=== PATIENT | female | born 1995 | race Caucasian/White ===

== ENCOUNTER 2018-06-25 19:02 | Outpatient (REF) | payer MEDICAID, SELFPAY ==
[2018-06-25 19:44] LABS: Clarity Cloudy
[2018-06-25 19:45] LABS: Specific Gravity 1.025 (1.005-1.025)
[2018-06-25 19:48] LABS: Epithelial Cells Many HPF (Negative); RBC >50 (0-2); WBC >50 HPF (0-5)
[2018-06-25 19:49] LABS: C & S Indicated? C&S Done As Ordered; Casts Negative LPF (Negative); Crystals Many Amorphous HPF (Negative); Mucus Negative (Negative)
== END 2018-06-25 19:22 ==
LOC: LBN 19:02
PROVIDERS: PCP Nurse Practitioner Family; Visit Provider Nurse Practitioner Family
DX: R31.9 Hematuria, unspecified (principal)
CPT/HCPCS: 87077; 81003; 81015; 87086; 87186

== ENCOUNTER 2018-07-11 13:48 | Outpatient (REF) | payer MEDICAID, SELFPAY | END 2018-07-11 14:08 | LOC: LBN 13:48 | PROVIDERS: PCP Nurse Practitioner Family; Visit Provider Nurse Practitioner Family | DX: N39.0 Urinary tract infection, site not specified (principal) | CPT/HCPCS: 87086 ==

== ENCOUNTER 2018-09-12 16:16 | Outpatient (REF) | payer MEDICAID, SELFPAY | END 2018-09-12 16:36 | LOC: LBN 16:16 | PROVIDERS: PCP Nurse Practitioner Family; Visit Provider Family Medicine | DX: J02.9 Acute pharyngitis, unspecified (principal) | CPT/HCPCS: 87070 ==

== ENCOUNTER 2018-12-15 10:09 | Emergency (ER) | payer MEDICAID, SELFPAY ==
[2018-12-15 10:13] VITALS: BP 127/76; PULSE 86; RESP 18; TEMP 36.7; O2SAT 97
--- NOTE | 2018-12-16 08:47 | ED.GENADUL_ITS ---
Discharge Plan Disposition Patient Disposition: HOME Condition: Good Discharge Details Chief Complaint: EyeProblem Clinical Impression: Conjunctivitis Primary Care Provider: Tanya Dangelo ED Provider: Lorna Mckeon Home Meds and New Rx's Prescriptions: New ofloxacin [Ocuflox] 0.3 % drops 1 drp OP QID Qty: 5 RF: 1 No Action Oral Contraceptive See Rx Instructions .ROUTE .COMPLEX RF: 0 Discharge Instructions Instructions: Conjunctivitis (ED) Additional Instructions: Wash hands frequently Warm compresses to the eye when drainage is present, cool compresses for comfort. Use antibiotic drops as prescribed 1 drop in each eye every 2 hours while awake for the first 2 days then decrease use to 4 times daily while awake. Use antibiotic drops for 1 week. Avoid use of contacts for 1 week. Follow-up with [facility] if not improving in next 2-3 days. Return for any worsening or concerns sooner if needed. Discharge Data Discharge Date/Time-TO BE ENTERED AT DEPARTURE: 12/15/18 10:51 Medical Decision Making 23-year-old patient presents for concern of left eye pinkeye. Patient reports drainage and crusting of the eye this morning I was crusted closed. Patient with associated upper respiratory symptoms. Is concerned for pinkeye and requiring antibiotic. Patient does have children at home. No other ill exposures. Patient denies any vision change or alarming symptoms of the eye. No injury or trauma. Does use contacts but has not been sleeping in them recently and denies pain or discomfort associated with discharge from the eye. I feel corneal ulcer is unlikely at this time given her presentation. Patient denies any vision changes. Patient would prefer antibiotic treatment at this time and follow-up with [facility] who follows her for any worsening or concerns if not improved. Insert discharge statement HPI General Date/Time Provider Initiated Documentation: 12/15/18 10:22 . HPI Narrative: 23-year-old patient presents for complaints of left eye irritation. Patient reports she has had mild cough and cold symptoms this week and then began with onset of left eye redness and associated crusting this morning. Patient reports she woke this morning and her eye was crusted closed. Patient denies significant eye pain. She did report mild discomfort to the lower lid on the left and does have a history of stye, none apparent at this time. Patient denies vision change, blurred vision, double vision, spots, flashes or floaters. Denies ill feeling. No concern of sinus infection. Reports mild nasal discharge but no facial pain. No significant ear pain. No significant sore throat or voice change. Patient reports mild cough. Patient denies any injury or trauma to her eye. She does wear contact lenses. Has not slept in her contacts recently. Related Data Home Medications Medication Instructions Recorded Confirmed Oral Contraceptive See Rx Instructions .ROUTE .COMPLEX 07/11/18 12/15/18 ofloxacin [Ocuflox] 1 drp OP QID #5 ml 12/15/18 Previous Rx's Medication Instructions Recorded ofloxacin [Ocuflox] 1 drp OP QID #5 ml 12/15/18 Allergies Allergy/AdvReac Type Severity Reaction Status Date / Time latex Allergy Severe RASH Verified 12/15/18 10:15 NUTS Allergy Unknown Swollen, Uncoded 12/15/18 10:15 itchy gums General Stated Complaint: EyeProblem SHIRA: 5 Review of Systems All systems reviewed & are unremarkable except as noted in HPI and below Constitutional Constitutional: Denies chills, Denies fever(s) and Denies headache(s) Eyes Eyes: Denies blind spots, Denies blurry vision, Reports eye discharge, Denies loss of peripheral vision, Denies loss of vision, Denies eye pain, Denies seeing flashes and Denies photophobia ENT Ears, Nose, Mouth, and Throat: Denies otalgia, Denies headache(s), Reports nasal congestion, Reports nasal discharge, Denies sinus pain, Denies sinus pressure and Denies sore throat Cardiovascular Cardiovascular: Denies dyspnea on exertion Respiratory Respiratory: Reports cough and Denies dyspnea on exertion Neurologic Neurologic: Denies headache(s) and Denies loss of vision [facility] Medical History Acute bacterial tonsillitis (Resolved) Nut allergy (Acute) Reported by patient - several episodes ages 10-14 with tongue swelling. None since. Never tested. Declines referral and/or offer of epi pen Tonsillitis (Acute) Wart (Acute) Family History Mother Personal history of malignant neoplasm ovarian/uterine Father No problems noted. Sister No problems noted. Grandfather Hypertensive disorder, systemic arterial Diabetes Heart disease Grandfather Diabetes Grandmother Hypertensive disorder, systemic arterial Diabetes Personal history of malignant neoplasm Heart disease Grandmother Hypertensive disorder, systemic arterial Diabetes Heart disease FAMILY HISTORY No problems noted. Social History Smoking/Tobacco Use Status: Never Alcohol Intake: never Substance use type: does not use Do you feel safe at home: Yes Do you feel safe in your relationship?: Yes Exam Narrative Exam Narrative: CONST: Healthy appearing patient, in no acute distress. Well hydrated. Alert and alert. HENMT: Head nomocephalic, normal to inspection. Atraumatic. Hearing grossly normal. Mild right TM erythema without obvious bulging. Left TM normal in appearance. Mild pharyngeal erythema. EYES: General normal appearance. Alignment normal. Eyelids normal. Left conjunctival injection. Mild drainage noted on the lid. No obvious stye associated. Extraocular motion intact without pain. PERRLA. NECK: Normal visual inspection. FROM. Trachea midline. No Midline tenderness. Cervical lymphadenopathy present. CHEST: Normal insepection of the chest. RESP: Normal respiratory effort. Speaking full sentences. No cough. No audible wheezing. No retractions. Breath sounds are equal and full bilaterally without associated rales, rhonchi or wheezing SKIN: Normal. Dry. No rashes. NEURO: Alert and awake. Speech clear. PSYCH: Normal affect. Cooperative. Course Vital Signs Vital signs: Vital Signs Temperature 36.7 C 12/15/18 10:13 Pulse 86 12/15/18 10:13 Respiratory Rate 18 12/15/18 10:13 Blood Pressure 127/76 12/15/18 10:13 Pulse Oximetry 97 12/15/18 10:13 Temperature 36.7 C 12/15/18 10:13 Temperature Source Temporal Artery Scan 12/15/18 10:13 Pulse 86 12/15/18 10:13 Respiratory Rate 18 12/15/18 10:13 Respiratory Effort Non-Labored 12/15/18 10:13 Blood Pressure 127/76 12/15/18 10:13 Pulse Oximetry 97 12/15/18 10:13 Oxygen Delivery Method Room Air 12/15/18 10:13 Oxygen Flow Rate 0 12/15/18 10:13 Pain Level 0 12/15/18 10:13
== END 2018-12-15 10:51 | disposition home or self-care (01) ==
PROVIDERS: Emergency Provider Physician Assistant; PCP Nurse Practitioner Family
DX: H10.89 Other conjunctivitis (principal)
CPT/HCPCS: 99283

== ENCOUNTER 2019-04-22 15:15 | Emergency (ER) | payer MEDICAID, SELFPAY ==
[2019-04-22 15:22] VITALS: BP 127/75; PULSE 66; RESP 16; TEMP 36.3; O2SAT 99
--- NOTE | 2019-04-22 15:31 | ED.GENADUL_ITS ---
Discharge Plan Disposition Patient Disposition: HOME Condition: Stable Discharge Details Chief Complaint: RespSymp Clinical Impression: Sinusitis Primary Care Provider: Tanya Dangelo ED Provider: Aamir Teresa Home Meds and New Rx's Prescriptions: New amoxicillin-pot clavulanate [Augmentin] 875-125 mg tablet 1 tab PO BID Qty: 14 RF: 0 Continued Oral Contraceptive See Rx Instructions .ROUTE .COMPLEX RF: 0 Discharge Instructions Instructions: Sinusitis (ED) Additional Instructions: try taking a claritin in the morning, and before bed benadryl. Also try a netti pot if not better within a week see your primary care provider if you feel more ill or have worsening fevers or difficulty breathing return to the emergency department Medical Decision Making 23 yo female who denies chronic medical problems comes in with 14 days of sinus pain and congestion, cough and ear pain. HAd a temp to 100.0 several days ago otherwise no fevers, denies any recent travel, and denies drug use. She is in no distress on exam speaking in full sentences and appears well systemically. HAs clear rhinorrhea, clear lung sounds, normal tm's and pain on percussino of maxillary sinuses. Suspect sinusitis and given over 10 days of symptoms will start her on augmentin. ADvised to f/u with pcp in a week if not better and return precautions given. HAs no skin changes, vision changes, eomi so doubt entities such as orbital cellulitis or cavernous sinus thrombosis Differential Diagnosis Differential Diagnosis: sinusitis, uri, bronchitis HPI General Mode of arrival: ambulatory . Date/Time Provider Initiated Documentation: 04/22/19 15:18 . Limitations to Documentation: no limitations . Information obtained by: patient . History of Present Illness 23 year old F presents to the emergency department with the chief complaint of sinus pain and congestion, described as moderate, and is localized to the face. No relieving factors improve symptom(s), No exacerbating factors reported . Patient notes cough. Patient did receive the following treatments prior to arrival, NSAID Related Data Home Medications Medication Instructions Recorded Confirmed Oral Contraceptive See Rx Instructions .ROUTE .COMPLEX 07/11/18 04/22/19 amoxicillin-pot clavulanate 1 tab PO BID #14 tab 04/22/19 [Augmentin] Previous Rx's Medication Instructions Recorded amoxicillin-pot clavulanate 1 tab PO BID #14 tab 03/02/20 [Augmentin] Allergies Allergy/AdvReac Type Severity Reaction Status Date / Time latex Allergy Severe RASH Verified 04/22/19 15:24 NUTS Allergy Unknown Swollen, Uncoded 04/22/19 15:24 itchy gums General Stated Complaint: RespSymp SHIRA: 4 Review of Systems All systems reviewed & are unremarkable except as noted in HPI and below Constitutional Constitutional: Denies chills and Denies weakness Cardiovascular Cardiovascular: Denies chest pain and Denies dyspnea Respiratory Respiratory: Denies dyspnea Gastrointestinal Gastrointestinal: Denies abdominal pain, Denies nausea and Denies vomiting Genitourinary Genitourinary: Denies dysuria Musculoskeletal Musculoskeletal: Denies joint swelling Integumentary/Breasts Skin/Breast: Denies rash Neurologic Neurologic: Denies weakness PFSH Family History Mother Personal history of malignant neoplasm ovarian/uterine Father No problems noted. Sister No problems noted. Grandfather Hypertensive disorder, systemic arterial Diabetes Heart disease Grandfather Diabetes Grandmother Hypertensive disorder, systemic arterial Diabetes Personal history of malignant neoplasm Heart disease Grandmother Hypertensive disorder, systemic arterial Diabetes Heart disease FAMILY HISTORY No problems noted. Social History Smoking/Tobacco Use Status: Never Alcohol Intake: never Substance use type: does not use Do you feel safe at home: Yes Do you feel safe in your relationship?: Yes Exam Const General: no acute distress Orientation: alert HENMT Head: normal to inspection Ears: external ears normal General nose exam: external nose normal Mouth: moist mucous membranes Eyes General: appearance normal, both eyes and all related structures Neck Neck: normal visual inspection Resp Effort & Inspection: normal respiratory effort and able to speak in complete sentences Cardio Rate: regular rate Skin General skin exam: no rashes or lesions noted Neuro General: alert and oriented x3 Extrem General: normal to inspection Psych Mental Status: mental status grossly normal Course Vital Signs Vital signs: Vital Signs Temperature 36.3 C L 04/22/19 15:22 Pulse 66 04/22/19 15:22 Respiratory Rate 16 04/22/19 15:22 Blood Pressure 127/75 04/22/19 15:22 Pulse Oximetry 99 04/22/19 15:22 Temperature 36.3 C L 04/22/19 15:22 Temperature Source Skin 04/22/19 15:22 Pulse 66 04/22/19 15:22 Respiratory Rate 16 04/22/19 15:22 Respiratory Effort Non-Labored 04/22/19 15:25 Blood Pressure 127/75 04/22/19 15:22 Blood Pressure Position Sitting 04/22/19 15:22 Pulse Oximetry 99 04/22/19 15:22 Oxygen Delivery Method Room Air 04/22/19 15:22 Oxygen Flow Rate 0 04/22/19 15:22 Pain Level 2 04/22/19 15:22
== END 2019-04-22 15:57 | disposition home or self-care (01) ==
PROVIDERS: Emergency Provider Emergency Medicine; PCP Nurse Practitioner Family
DX: J01.90 Acute sinusitis, unspecified (principal)
CPT/HCPCS: 99283

== ENCOUNTER 2019-08-10 06:49 | Emergency (ER) | payer MEDICAID, SELFPAY ==
[2019-08-10 06:54] VITALS: BP 127/94; PULSE 87; RESP 18; TEMP 36.8; O2SAT 96
--- NOTE | 2019-08-10 07:00 | DI.CT_ITS ---
EXAM: CT ABDOMEN PELVIS W CLINICAL HISTORY: RLQ pain, r/o appem, also eval GB TECHNIQUE: Imaging Protocol: Axial computed tomography images with coronal and sagittal reformatted images were created and reviewed CONTRAST MATERIAL: Intravenous: Omnipaque 350 Contrast volume:100 mL Oral: No COMPARISON: No exams were available for comparison FINDINGS: The lung bases are clear. The liver is unremarkable. The portal, superior mesenteric and splenic ve ins are unremarkable. The gallbladder is unremarkable. There is no biliary ductal dilatation. The pancreas, spleen and adrenal glands are unremarkable. The abdominal aorta is of normal caliber. No aneurysmal dilatation is present. No significant abdominal or pelvic adenopathy, ascites or pneumope ritoneum is present. The urinary bladder is intact. The reproductive organs are unremarkable. Ther e is moderate to marked thickening of the wall of the right colon and cecum. The remainder of the massiel wel is unremarkable. The appendix has a normal appearance. The bones are unremarkable. IMPRESSION: 1. Bowel wall thickening in the right colon and cecum suspicious for an inflammatory or infectious co litis. 2. Normal appendix. RADIATION DOSE DELIVERED: Total DLP DATA REPOSITORY: All CT scans at this facility are submitted to the National Radiology Data Registry (NRDR) Dose Index Registry (DIR) with the [employer] (ACR). RADIATION OPTIMIZATION: All CT scans at this facility use at least one of these dose optimization te chniques: automated exposure control; mA and/or kV adjustment per patient size (includes targeted exa ms where dose is matched to clinical indication); or iterative reconstruction.
--- NOTE | 2019-08-10 07:08 | ED.GENADUL_ITS ---
Discharge Plan Disposition Patient Disposition: HOME Condition: Stable Discharge Details Chief Complaint: Abd Prob Clinical Impression: Colitis Primary Care Provider: Tanya Dangelo ED Provider: Caden Pederson Home Meds and New Rx's Prescriptions: Continued Oral Contraceptive See Rx Instructions .ROUTE .COMPLEX RF: 0 Discharge Instructions Instructions: Colitis (ED) Additional Instructions: Please allow for bowel rest over the next few days. I recommend you maintain a clear liquid diet today. Tomorrow you may advance to bland soft foods like rice and maintain adequate clear liquid intake. Advance diet slowly thereafter. Please contact your primary care physician to arrange follow-up. Return to the ER for any worsening or new concerning symptoms. Referrals: Tanya Dangelo, ELIDA [Primary Care Provider] - Medical Decision Making <Nilo Allison DO - Last Filed: 08/10/19 07:11> 23-year-old female presents today for evaluation of right-sided abdominal pain. Patient states that for the last 2 days she has had nausea, and continuous right-sided abdominal pain located more so in the upper right abdominal quadrant and initially started midline and is now radiating towards her back. She denies any aggravation or relief with food. She has had no relief or improvement of her symptoms with Maalox or Pepto-Bismol. She describes her pain is constant and achy in nature. It does not come and go. She denies any vomiting or diarrhea. She denies any numbness tingling or weakness. She denies any vaginal discharge, urinary frequency or dysuria. She is taking contraceptives. Physical exam demonstrates notable right lower quadrant tenderness, palpation does give a radiation of the pain to the umbilical region as well. She has no pain in the right upper quadrant whatsoever on palpation. Historically I was more concerned with gallbladder pathology however physical exam certainly brings about concern for lingering appendicitis. Because of this we will get a CT scan of the abdomen and pelvis with contrast, and treat patient's pain with Toradol, monitor closely and reassess. <Caden Pederson MD - Last Filed: 08/10/19 08:49> 800??care signed out by Dr. Allison. Please see his documentation regarding initial ED presentation and course. Plan at signout was to follow-up on CT of the abdomen and pelvis. 834??CT the abdomen pelvis was interpreted by radiology: IMPRESSION: 1. Moderate to large wall thickening in the right colon. Consistent with infectious versus inflammatory colitis. 2. Normal appendix Patient reassessed and is remained stable. Able to tolerate fluids. All results were reviewed and discussed with the patient. Patient not able to provide stool specimen. Loose stool 2 days ago. Has had formed BM yesterday. Advised follow-up PCP for stool cultures. Plan will be for bowel rest, outpatient follow-up with PCP, and strict instructions to return should have any worsening or new concerning symptoms. Usual customary discharge instructions were reviewed with the patient. Lab Data Lab results reviewed: Yes I reviewed the patient's lab results. Labs: Laboratory Tests Range/Units 08/10/19 08/10/19 08/10/19 07:10 07:10 07:15 WBC (4.4-10.8) k/cumm 10.72 RBC (4.00-5.20) m/cumm 4.80 Hgb (12.0-15.5) g/dL 14.2 Hct (36.0-46.0) % 43.1 MCV (80-95) fL 89.8 MCH (27.0-33.0) pg 29.6 MCHC (32.0-36.0) g/dL 32.9 RDW (11.7-14.6) % 13.2 Plt Count (130-400) x1000/uL 211 MPV (8.0-11.0) fL 10.3 Immature Gran % % 0.3 Neutrophils % 58.2 Lymphocytes % 29.8 Monocytes % 9.5 Eosinophils % 1.9 Basophils % 0.3 Absolute Neutrophils (1.2-6.7) k/cumm 6.25 Absolute Lymphocytes (1.2-3.4) k/cumm 3.19 Absolute Monocytes (0.11-0.7) k/cumm 1.02 H Absolute Eosinophils (0.0-0.7) k/cumm 0.20 Absolute Basophils (0.0-0.2) k/cumm 0.03 Sodium (136-145) mmol/L 140 Potassium (3.5-5.1) mmol/L 3.8 Chloride (98-107) mmol/L 105 Carbon Dioxide (21.0-32.0) mmol/L 27.2 Anion Gap (3-11) mmol/L 7.8 BUN (7-18) mg/dL 8 Creatinine (0.55-1.02) mg/dL 0.73 Estimated GFR/1.73 m2 (mL/min/1.73m2) >= 60.00 Glucose (74-106) mg/dL 92 Calcium (8.5-10.1) mg/dL 8.8 Total Bilirubin (0.2-1.0) mg/dL 0.3 AST (15-37) U/L 14 L ALT (14-59) U/L 20 Alkaline Phosphatase (46-116) U/L 59 Total Protein (6.4-8.2) g/dL 7.5 Albumin (3.4-5.0) g/dL 3.2 L Lipase (73-393) U/L 94 Urine Color (Yellow) Yellow Urine Clarity (Clear) Clear Urine pH (5-8) 7.0 Ur Specific [place] (1.005-1.025) >= 1.030 H Urine Protein (Negative) mg/dL Negative Urine Ketones (Negative) mg/dL Negative Urine Blood (Negative) Trace-intact H Urine Nitrite (Negative) Negative Urine Bilirubin (Negative) Negative Urine Urobilinogen (Up TO 0.2) EU/dL 0.2 Ur Leukocyte Esterase (Negative) Negative Urine RBC (0-2) HPF 0-2 Urine WBC (0-5) HPF 0-2 Ur Epithelial Cells (Negative) HPF Moderate Urine Crystals (Negative) HPF Negative Urine Bacteria (Negative) HPF Few Urine Casts (Negative) LPF Negative Urine Mucus (Negative) Moderate Ur Culture Indicated? No/sq. contamination Urine Glucose (Negative) mg/dL Negative HPI <Nilo Allison DO - Last Filed: 08/10/19 07:11> General Date/Time Provider Initiated Documentation: 08/10/19 06:53 . HPI Narrative: 23-year-old female presents today for evaluation of right-sided abdominal pain. Patient states that for the last 2 days she has had nausea, and continuous right-sided abdominal pain located more so in the upper right abdominal quadrant and initially started midline and is now radiating towards her back. She denies any aggravation or relief with food. She has had no relief or improvement of her symptoms with Maalox or Pepto-Bismol. She describes her pain is constant and achy in nature. It does not come and go. She denies any vomiting or diarrhea. She denies any numbness tingling or weakness. She denies any vaginal discharge, urinary frequency or dysuria. She is taking contraceptives. She has no other complaints at this time. Related Data Home Medications Medication Instructions Recorded Confirmed Oral Contraceptive See Rx Instructions .ROUTE .COMPLEX 07/11/18 08/10/19 Allergies Allergy/AdvReac Type Severity Reaction Status Date / Time latex Allergy Severe RASH Verified 08/10/19 07:19 NUTS Allergy Unknown Swollen, Uncoded 08/10/19 07:19 itchy gums General Stated Complaint: Abd Prob SHIRA: 3 Review of Systems <Nilo Allison DO - Last Filed: 08/10/19 07:11> All systems reviewed & are unremarkable except as noted in HPI and below PFSH <Nilo Allison DO - Last Filed: 08/10/19 07:11> Medical History Acute bacterial tonsillitis (Resolved) Nut allergy (Acute) Reported by patient - several episodes ages 10-14 with tongue swelling. None since. Never tested. Declines referral and/or offer of epi pen Tonsillitis (Acute) Wart (Acute) Family History Mother Personal history of malignant neoplasm ovarian/uterine Father No problems noted. Sister No problems noted. Grandfather Hypertensive disorder, systemic arterial Diabetes Heart disease Grandfather Diabetes Grandmother Hypertensive disorder, systemic arterial Diabetes Personal history of malignant neoplasm Heart disease Grandmother Hypertensive disorder, systemic arterial Diabetes Heart disease FAMILY HISTORY No problems noted. Social History Smoking/Tobacco Use Status: Never Alcohol Intake: never Substance use type: does not use Do you feel safe at home: Yes Do you feel safe in your relationship?: Yes Exam <Nilo Allison DO - Last Filed: 08/10/19 07:11> Narrative Exam Narrative: 1.Const: Well-nourished, Well-developed, appearing stated age 2.Eyes: PERRL, no conjunctival injection, and symmetrical lids. 3.ENT: Atraumatic external nose and ears. Moist MM. Neck: Symmetric, trachea midline, No thyromegaly. 4.CVS: +S1/S2, No murmurs or gallops. Peripheral pulses 2+ and equal in all extremities. Brisk capillary refill in all extremities. 5.RESP: Unlabored respiratory effort. Clear to auscultation bilaterally. No wheezes rales or rhonchi 6.GI: Soft, nondistended, bowel sounds present. No pelvic tenderness. Despite history she has no pain or tenderness in the right upper quadrant, negative Waite sign. Patient does have notable right lower quadrant tenderness so, positive obturator sign. Positive heel strike test. No flank or CVA tenderness on percussion. 7.MSK: Normocephalic/Atraumatic, Extremities w/o deformity or ttp No cyanosis or clubbing, Normal movement of all extremities 8.Skin: Warm, Dry. No rashes or lesions. 9.Neuro: photography assistant II-XII grossly intact. Sensation grossly intact, no focal neurologic deficits. 10.Psych: (AAO) x3. Appropriate mood and affect Course <Nilo Allison DO - Last Filed: 08/10/19 07:11> Vital Signs Vital signs: Vital Signs Temperature 36.8 C 08/10/19 06:54 Pulse 87 08/10/19 06:54 Respiratory Rate 18 08/10/19 06:54 Blood Pressure 127/94 H 08/10/19 06:54 Pulse Oximetry 96 08/10/19 06:54 Temperature 36.8 C 08/10/19 06:54 Temperature Source Temporal Artery Scan 08/10/19 06:54 Pulse 87 08/10/19 06:54 Respiratory Rate 18 08/10/19 06:54 Blood Pressure 127/94 H 08/10/19 06:54 Blood Pressure Position Sitting 08/10/19 06:54 Pulse Oximetry 96 08/10/19 06:54 Oxygen Delivery Method Room Air 08/10/19 06:54 Oxygen Flow Rate 0 08/10/19 06:54 Pain Level 8 08/10/19 06:54 Sign Out <Nilo Allison DO - Last Filed: 08/10/19 07:11> Sign Out Data: Sign Out Comment: Pending CT imaging and reassessment for abdominal pain Last updated by Nilo Allison DO at 08/10/19 07:29
[2019-08-10 07:20] LABS: Abs Immature Grans 0.03 k/cumm (0.0-0.09); Absolute Basophil Count 0.03 k/cumm (0.0-0.2); Absolute Lymphocyte Count 3.19 k/cumm (1.2-3.4); Absolute Monocyte Count 1.02 k/cumm (0.11-0.7); Absolute Neutrophil Count 6.25 k/cumm (1.2-6.7); Basophils % 0.3; Eosinophils % 1.9; HCT 43.1 % (36.0-46.0); HGB 14.2 g/dL (12.0-15.5); Immature Grans % 0.3 %; Lymphocytes % 29.8; Mean Corp. HGB Concentration 32.9 g/dL (32.0-36.0); Mean Corpuscular Hemoglobin 29.6 pg (27.0-33.0); Mean Corpuscular Volume 89.8 fL (80-95); Mean Platelet Volume 10.3 fL (8.0-11.0); Monocytes % 9.5; Neutrophils % 58.2; Platelet Count 211 x1000/uL (130-400); RBC Distribution Width 13.2 % (11.7-14.6); White Blood Cell Count 10.72 k/cumm (4.4-10.8)
[2019-08-10] MEDS: Ketorolac 30 MG/ML VIAL IVP (07:23)
[2019-08-10 07:32] LABS: ALT 20 U/L (14-59); AST 14 U/L (15-37); Albumin 3.2 g/dL (3.4-5.0); Alkaline Phosphatase 59 U/L (46-116); Anion Gap 7.8 mmol/L (3-11); BUN 8 mg/dL (7-18); Bilirubin, Total 0.3 mg/dL (0.2-1.0); CO2 27.2 mmol/L (21.0-32.0); CREATININE 0.73 mg/dL (0.55-1.02); Calcium 8.8 mg/dL (8.5-10.1); Chloride 105 mmol/L (98-107); Glucose 92 mg/dL (74-106); Lipase 94 U/L (73-393); Potassium 3.8 mmol/L (3.5-5.1); Sodium 140 mmol/L (136-145); Total Protein 7.5 g/dL (6.4-8.2)
[2019-08-10 07:34] LABS: Bilirubin Negative (Negative); Blood Trace-intact (Negative); Clarity Clear (Clear); Glucose Negative (Negative); Ketones Negative (Negative); Leukocyte Esterase Negative (Negative); Nitrite Negative (Negative); Specific Gravity >= 1.030 (1.005-1.025); Urobilinogen 0.2 EU/dL (Up TO 0.2)
[2019-08-10 07:46] LABS: Bacteria Few HPF (Negative); Casts Negative LPF (Negative); Crystals Negative HPF (Negative); Epithelial Cells Moderate HPF (Negative); Mucus Moderate (Negative); RBC 0-2 HPF (0-2); WBC 0-2 HPF (0-5)
[2019-08-10 07:47] LABS: C & S Indicated? No/Sq. Contamination
--- NOTE | 2019-08-10 08:13 | DI.VRAD_ITS ---
PROCEDURE INFORMATION: Exam: CT Abdomen And Pelvis With Contrast Exam date and time: 08/10/2019 7:08 AM Age: 23 years old Clinical indication: Abdominal pain TECHNIQUE: Imaging protocol: Computed tomography of the abdomen and pelvis with intravenous contrast. Reformatted images were created and reviewed. Contrast material: [place] 350; Contrast volume: 100 ml; Contrast route: INTRAVENOUS (IV); COMPARISON: No relevant prior studies available. FINDINGS: Liver: No acute abnormality. Gallbladder and bile ducts: No stones. No ductal dilation. Pancreas: No ductal dilation. Spleen: No acute abnormality. Adrenals: No mass. Kidneys and ureters: No hydronephrosis. Stomach and bowel: No bowel obstruction. Moderate to large wall thickening in the right colon Appendix: Normal appendix. Intraperitoneal space: No free air. No significant fluid collection. Vasculature: No abdominal aortic aneurysm. Lymph nodes: No enlarged lymph nodes. Bladder: No acute findings. Reproductive: No acute findings. Bones/joints: No acute fracture. Soft tissues: No acute findings. IMPRESSION: 1. Moderate to large wall thickening in the right colon. Consistent with infectious versus inflammatory colitis. 2. Normal appendix Dictated and Authenticated by: Balbir Dave MD. Ordering:YURI Corcoran MD
[2019-08-10] MEDS: Omnipaque 350 MG/ML 100 ML BTL IJ (08:16)
[2019-08-10 08:24] VITALS: BP 126/86; PULSE 70; RESP 18; O2SAT 100
== END 2019-08-10 09:04 | disposition home or self-care (01) ==
PROVIDERS: Student in an Organized Health Care Education/Training Program; Emergency Provider Student in an Organized Health Care Education/Training Program; PCP Nurse Practitioner Family
DX: R10.31 Right lower quadrant pain (principal); K52.9 Noninfective gastroenteritis and colitis, unspecified
CPT/HCPCS: 36415; 80053; 81025; 83690; 96374; 99285; 74177; 81003; 81015; 85025; J1885; J3490

== ENCOUNTER 2021-07-20 18:23 | Outpatient (REF) | payer BC, SELFPAY | END 2021-07-20 18:24 | disposition home or self-care (01) | LOC: LBN 18:23 | PROVIDERS: PCP Nurse Practitioner Family; Visit Provider Family Medicine | DX: R31.9 Hematuria, unspecified (principal) | CPT/HCPCS: 87086 ==

== ENCOUNTER 2023-04-03 16:39 | Outpatient (REF) | payer BC, SELFPAY | END 2023-04-03 16:40 | disposition home or self-care (01) | LOC: LBN 16:39 | PROVIDERS: PCP Nurse Practitioner Family; Visit Provider Physician Assistant | DX: J02.9 Acute pharyngitis, unspecified (principal) | CPT/HCPCS: 87070 ==

== ENCOUNTER 2024-05-22 03:12 | Outpatient (CLI) | payer BC, SELFPAY ==
[2024-05-22 12:43] LABS: Hemoglobin A1C 5.3 % (<5.7)
[2024-05-22 12:49] LABS: ALT 37 U/L (14-59); AST 20 U/L (15-37); Albumin 3.7 g/dL (3.4-5.0); Alkaline Phosphatase 70 U/L (46-116); Anion Gap 11.9 mmol/L (3-11); BUN 12 mg/dL (7-18); Bilirubin, Total 0.3 mg/dL (0.2-1.0); CO2 26.1 mmol/L (21.0-32.0); CREATININE 0.8 mg/dL (0.55-1.02); Calcium 9.1 mg/dL (8.5-10.1); Calculated LDL 63 mg/dL (<100); Chloride 108 mmol/L (98-107); Cholesterol 127 mg/dL (<200); Estimated GFR 101.59 (mL/min/1.73m2); Glucose 76 mg/dL (74-106); HDL Cholesterol 58 mg/dL (>or=50); Sodium 146 mmol/L (136-145); TSH (W/Ref FT4) 2.86 uIU/mL (0.36-3.74); Total Protein 7.4 g/dL (6.4-8.2); Triglyceride 32 mg/dL (<150)
== END 2024-05-22 03:13 | disposition home or self-care (01) ==
LOC: LOS 03:13
PROVIDERS: PCP Nurse Practitioner Family; Visit Provider Nurse Practitioner Family
DX: Z00.00 Encounter for general adult medical examination without abnormal findings (principal)
CPT/HCPCS: 36415; 80053; 80061; 83036; 84443